=== PATIENT | male | born 1980 | race Caucasian/White ===

== ENCOUNTER 2023-08-05 11:37 | Outpatient (CLI) | payer OTHER ==
[2023-08-05 12:10] LABS: #Monocytes 0.7 10x3/uL (0.0-1.1); #Neutrophils 2.2 10x3/uL (1.5-8.4); %Basophils 0.6 % (0.0-2.0); %Eosinophils 0.8 % (0.0-6.0); %Lymphocytes 43.8 % (18.0-47.0); %Monocytes 13.8 % (0.0-10.0); %Neutrophils 40.6 % (40.0-75.0); Hematocrit 46.9 % (38.8-50.0); Hemoglobin 16.1 g/dL (13.5-17.5); Mean Corpuscular HGB CONC 34.3 g/dL (32.0-36.0); Mean Corpuscular Hemoglobin 29.5 pg (27.0-33.0); Mean Corpuscular Volume 85.9 fl (81.2-95.1); Mean Platelet Volume 9.6 fl (7.4-10.4); Platelet Count 194 10x3/uL (150-450); Red Blood Cell (RBC) Count 5.46 10x6/uL (4.32-5.72); White Blood Cell (WBC) Count 5.3 10x3/uL (3.5-10.5)
[2023-08-05 12:51] LABS: ALT (SGPT) 63 U/L (8-55); AST (SGOT) 30 U/L (5-34); Albumin 4.4 g/dL (3.5-5.0); Alkaline Phosphatase 74 U/L (40-110); Anion Gap 12 mmol/L (10-20); BUN (Urea Nitrogen) 13 mg/dL (8.9-20.6); Bilirubin, Total 0.6 mg/dL (0.2-1.2); Calc. Creatinine Clearance 0 mL/min (70-130); Carbon Dioxide 28 mmol/L (22-29); Chloride 105 mmol/L (98-107); Estimated GFR 96; Globulin 3.2 g/dL (2.4-3.5); Glucose 93 mg/dL (70-105); Protein, Total 7.6 g/dL (6.0-8.3); Sodium 141 mmol/L (136-145)
== END 2023-08-05 11:38 | disposition home or self-care (01) ==
LOC: LABBT 11:37
PROVIDERS: ATTEND Surgery
DX: Z01.812 Encounter for preprocedural laboratory examination (principal); K42.9 Umbilical hernia without obstruction or gangrene
CPT/HCPCS: 80053; 85025

== ENCOUNTER 2023-08-10 06:08 | Day surgery (SDC) | payer OTHER ==
[2023-08-05 12:02] VITALS: BMI 32.5
[2023-08-10] MEDS ORDERED: Lidocaine 1% MPF 2 ML VIAL ONE (06:15)
[2023-08-10] MEDS ORDERED: Midazolam HCl 2 mg/2 ml Vial ONE (06:17)
[2023-08-10] MEDS ORDERED: fentaNYL PF 100 MCG/2 ML SYRINGE ONE (06:17)
[2023-08-10] MEDS ORDERED: PROPOFOL 20 ML ONE (06:17)
[2023-08-10] MEDS ORDERED: Ondansetron PF 4 MG/2 ML Vial ONE ×2 (06:21→07:15)
[2023-08-10] MEDS ORDERED: Lidocaine 1% PF 5 ML VIAL ONE ×2 (06:21→07:15)
[2023-08-10] MEDS ORDERED: Dexamethasone 4 mg/ml Vial ONE (06:21)
[2023-08-10] MEDS ORDERED: CEFAZOLIN 2 GM VIAL ONE (06:22)
[2023-08-10] MEDS ORDERED: Sodium Chloride 0.9% 100 ML ONE (06:22)
[2023-08-10] MEDS ORDERED: Bupivacaine 0.25% HCL 30 ML VIAL ONE (06:38)
[2023-08-10] MEDS ORDERED: EPINEPHrine 1 MG/ML VIAL ONE (06:38)
[2023-08-10] MEDS ORDERED: Labetalol HCl 100 MG/20 ML VIAL ONE ×2 (06:56→07:15)
[2023-08-10] MEDS ORDERED: Rocuronium Bromide 10 MG/ML (10ML VIAL) ONE ×2 (07:15→07:22)
[2023-08-10] MEDS ORDERED: Dexamethasone 20 MG/5 ML VIAL ONE (07:15)
[2023-08-10] MEDS ORDERED: PROPOFOL 200 MG/20 ML VIAL ONE (07:15)
[2023-08-10] MEDS ORDERED: PHENYLEPHRINE-NS 100 MCG/ML 10 ML SYRINGE ONE (07:15)
[2023-08-10] MEDS ORDERED: SUGAMMADEX SODIUM 200 MG/2 ML VIAL ONE (07:23)
[2023-08-10] MEDS ORDERED: Phenylephrine 40 MG/NS 250 ML 250 ML ONE (07:47)
[2023-08-10] MEDS ORDERED: HYDROcodone/Acetaminophen 5/325 mg Tablet ONE (09:56)
== END 2023-08-10 10:27 | disposition home or self-care (01) ==
LOC: SDC 06:08
PROVIDERS: ATTEND Surgery
PROC: 0WUF4JZ Supplement Abdominal Wall with Synthetic Substitute, Percutaneous Endoscopic Approach (ICD-10-PCS; principal; 2023-08-10)
DX: K42.9 Umbilical hernia without obstruction or gangrene (principal); F17.210 Nicotine dependence, cigarettes, uncomplicated
CPT/HCPCS: 93005; 93010; J0171; J1100; J2250; J2405; J2704; J3490; S0020